=== PATIENT | male | born 1945 | race Caucasian/White ===

== ENCOUNTER 2019-01-03 14:49 | Emergency (ER) | payer OTHER ==
[~2019-01-03] VITALS: Ht 180.3 cm; Wt 72.6 kg
[~2019-01-03 14:49] MED LIST: AUGMENTIN 875875 MG; BAYER CHEWABLE81 MG PO; CARVEDILOL12.5 MG PO; CO Q-10100 MG; CRESTOR20 MG; FISH OIL 1,001000 M2; LOPRESSOR50 PO; MULTIVITAMINS1 EAC6; NEURONTIN 300300 M1; PLAVIX 75 MG TA75 M1; ZESTRIL20 MG PO
[2019-01-03] MEDS ORDERED: FLOMAX0.4 MG PO (15:06)
[2019-01-03] MEDS ORDERED: ZOLOFT50 MG PO (15:06)
[2019-01-03] MEDS ORDERED: NORCO 5-325 TA1 EAC1 PO (15:51)
[2019-01-03 16:06] VITALS: BP 133/68
== END 2019-01-03 16:06 | disposition home or self-care (01) ==
LOC: M.ERS 14:49
DX: S20.222A Contusion of left back wall of thorax, initial encounter (principal); I10 Essential (primary) hypertension; Z98.890 Other specified postprocedural states; Z90.11 Acquired absence of right breast and nipple; Z88.8 Allergy status to other drugs, medicaments and biological substances; W18.39XA Other fall on same level, initial encounter; Y92.000 Kitchen of unspecified non-institutional (private) residence as the place of occurrence of the external cause; Y93.89 Activity, other specified; Y99.8 Other external cause status

== ENCOUNTER 2019-09-01 15:37 | Emergency (ER) | payer OTHER ==
[~2019-09-01] VITALS: Ht 180.3 cm; Wt 69.8 kg
[~2019-09-01 15:37] MED LIST changes: -CRESTOR20 MG; +CRESTOR20 MG PO; +FLOMAX0.4 MG PO; +NORCO 5-325 TA1 EAC1 PO; -PLAVIX 75 MG TA75 M1; +PLAVIX 75 MG TA75 M1 PO; +SERTRALINE HCL50 MG PO
[2019-09-01] MEDS ORDERED: TOVIAZ8 MG PO (15:47)
[2019-09-01 16:54] LABS: URINE BILIRUBIN NEGATIVE (Negative); URINE BLOOD NEGATIVE (Negative); URINE CLARITY CLEAR; URINE COLOR YELLOW; URINE GLUCOSE-RANDOM NEGATIVE (Negative); URINE KETONES 1+ (Negative); URINE LEUKOCYTES-REFLEX NEGATIVE (Negative); URINE NITRITE-REFLEX NEGATIVE (Negative); URINE PROTEIN NEGATIVE (Negative); URINE SPECIFIC GRAVITY >= 1.030 (1.005-1.030); URINE UROBILINOGEN 0.2 E.U./dl (0.2-1.0)
[2019-09-01 17:13] LABS: CALCIUM 9.2 mg/dL (8.5-10.1); CREATININE 0.7 mg/dL (0.6-1.3); POTASSIUM 3.5 mmol/L (3.5-5.1)
[2019-09-01 17:20] LABS: HEMATOCRIT 43.2 % (42.0-52.0); HEMOGLOBIN 14.5 gm/dL (14.0-18.0); MCHC 33.6 g/dL (28.0-37.0); MCV 89.3 fL (80.0-100.0); MPV 9.5 fl. (7.2-11.1); NUCLEATED RBCS 0 /100WBC; PLATELET COUNT* 251 thou/uL (150-400); RBC 4.84 mil/uL (4.50-6.00); RDW-CV 15.1 % (10.5-14.5); WBC 14.4 thou/uL (4.0-11.0)
[2019-09-01 17:24] LABS: ALBUMIN 4.1 g/dL (3.4-5.0); TOTAL BILIRUBIN 0.8 mg/dL (<0.1-1.0); TOTAL PROTEIN 8.3 g/dL (6.4-8.2)
[2019-09-01 18:00] LABS: ABSOLUTE MONOCYTES 0.4 thou/uL (0.0-1.2); PLATELET ESTIMATE ADEQUATE
[2019-09-01 18:01] LABS: ANISOCYTOSIS Occasional
[2019-09-01 20:32] VITALS: BP 188/89
--- NOTE | 2019-09-02 10:57 | EKG ---
[place] [address] ELECTROCARDIOGRAM REPORT Name: JARRETT NGUYEN Room: [facility]#: [id number] Admission: 09/01/19 Attend Phys: Discharge: 09/01/19 Date of : 43 Date of Service: 09/01/19 1637 Report #: [id number] THIS REPORT FOR: //name// [facility] ED Test Date: 2019-09-01 Test Time: 16:37:32 Pat Name: JARRETT NGUYEN Department: Room: Gender: Senior Net C Developer: MS : 1945 Requested By: Lul Bajwa Order Number: [id number] MD: Michael Shields Measurements Intervals [place] Rate: 79 P: CT: QRS: 57 QRSD: 118 T: -74 QT: 422 QTc: 484 Interpretive Statements Sinus rhythm with premature atrial complexes Inferior infarct, age indeterminate Late transition, cannot rule out old anteroseptal infarct Baseline wander in lead(s) V3 Compared to ECG 12/13/2013 18:58:06 Sinus rhythm no longer present Ventricular premature complex(es) no longer present Myocardial infarct finding still present Electronically Signed On 09-02-2019 10:56:42 CDT by Michael Shields [email or web address] <ELECTRONICALLY SIGNED> By: Michael Shields MD, FACC 09/02/19 1056 1637 1637 Michael Shields MD, [facility] /EPI
== END 2019-09-01 20:48 | disposition short-term general hospital (02) ==
LOC: M.ERS 15:37
PROVIDERS: Physician Assistant
DX: S01.511A Laceration without foreign body of lip, initial encounter (principal); S02.601A Fracture of unspecified part of body of right mandible, initial encounter for closed fracture; I48.91 Unspecified atrial fibrillation; J18.1 Lobar pneumonia, unspecified organism; I10 Essential (primary) hypertension; Z88.8 Allergy status to other drugs, medicaments and biological substances; W18.39XA Other fall on same level, initial encounter; Y93.89 Activity, other specified; Y92.89 Other specified places as the place of occurrence of the external cause; Y99.8 Other external cause status

== ENCOUNTER 2019-09-25 18:38 | Inpatient (IN) | payer OTHER ==
[~2019-09-25] VITALS: Ht 180.3 cm; Wt 64.9 kg
[~2019-09-25 18:38] MED LIST changes: +TOVIAZ8 MG PO
[2019-09-25 18:40] VITALS: BP 158/80
[2019-09-25 19:47] LABS: BE 11.7 mmol/L (-2 to +3); pH 7.461 (7.340-7.450)
[2019-09-25 19:50] LABS: PCO2 53.8 mmHg (35.0-45.0); PO2 57.5 mmHg (75.0-100.0)
[2019-09-25 20:06] LABS: INFLUENZA A ANTIGEN Negative (Negative)
[2019-09-25 20:08] LABS: HEMATOCRIT 37.7 % (42.0-52.0); HEMOGLOBIN 12.5 gm/dL (14.0-18.0); MCH 29.8 pg (26.0-34.0); MCHC 33.1 g/dL (28.0-37.0); MPV 10.5 fl. (7.2-11.1); NUCLEATED RBCS 0 /100WBC; PLATELET COUNT* 178 thou/uL (150-400); RBC 4.18 mil/uL (4.50-6.00); RDW-CV 14.4 % (10.5-14.5); WBC 12.9 thou/uL (4.0-11.0)
[2019-09-25 20:34] LABS: CREATININE 0.9 mg/dL (0.6-1.3); POTASSIUM 4.6 mmol/L (3.5-5.1)
[2019-09-25 20:38] LABS: ALBUMIN 3.3 g/dL (3.4-5.0); MAGNESIUM 2.1 mg/dL (1.8-2.4); TOTAL BILIRUBIN 0.5 mg/dL (<0.1-1.0); TOTAL PROTEIN 7.6 g/dL (6.4-8.2)
[2019-09-25 20:58] LABS: ABSOLUTE LYMPHOCYTES 0.3 thou/uL (0.8-5.3); ABSOLUTE MONOCYTES 0.6 thou/uL (0.0-1.2)
[2019-09-25 20:59] LABS: PLATELET ESTIMATE ADEQUATE
[2019-09-25 22:10] VITALS: BP 94/50
[2019-09-25 23:00] VITALS: BP 102/55
[2019-09-25 23:48] VITALS: BP 102/55
[2019-09-26 04:00] VITALS: BP 170/87
[2019-09-26 06:00] VITALS: BP 143/47
[2019-09-26 08:00] VITALS: BP 149/76
[2019-09-26] MEDS ORDERED: NEURONTIN300 MG PO (08:03)
[2019-09-26] MEDS ORDERED: PERCOCET 5-3251 EACH PO (08:04)
[2019-09-26] MEDS ORDERED: TYLENOL325 M1 PO (08:05)
[2019-09-26 12:00] VITALS: BP 106/57
--- NOTE | 2019-09-26 12:14 | 2DMMODE ---
[place] [address] 2 D/M-MODE ECHOCARDIOGRAM Name: JARRETT NGUYEN Room: [address] IN .R.#: [id number] Admission: 09/25/19 Attend Phys: Colten Sadler, Discharge: Date of : 43 Date of Service: 09/26/19 1212 Report #: [id number] THIS REPORT FOR: cc: Quoc Melendez MD, Matthew W. MD Holkins, John M. MD [facility] ~ APPROVED REPORT Study performed: 09/26/2019 11:20:28 EXAM: Comprehensive 2D, Doppler, and color-flow Echocardiogram Patient Location: In-Patient Room #: [facility] Status: routine BSA: 1.86 HR: 76 bpm BP: 143/47 mmHg Rhythm: NSR Other Information Study Quality: Good Indications Elevated Troponin 2D Dimensions IVSd: 13.60 (7-11mm) LVOT Diam: 22.04 (18-24mm) LVDd: 51.73 mm PWd: 7.55 (7-11mm) Ascending Ao: 36.60 (22-36mm) LVDs: 45.17 (25-40mm) Aortic Root: 41.29 mm Volumes Left Atrial Volume (Systole) LA ESV Index: 37.90 mL/m2 Aortic Valve AoV Peak Demetrius.: 0.92 m/s AO Peak Gr.: 3.36 mmHg LVOT Max P.72 mmHg AO Mean Gr.: 2.10 mmHg LVOT Mean P.29 mmHg LVOT Max V: 0.83 m/s AO V2 VTI: 19.60 cm LVOT Mean V: 0.52 m/s JAYSHREE (VTI): 3.06 cm2 LVOT V1 VTI: 15.72 [place] [address] 2 D/M-MODE ECHOCARDIOGRAM Name: JARRETT NGUYEN Room: [address] IN .R.#: [id number] Admission: 09/25/19 Attend Phys: Colten Sadler, Discharge: Date of : 43 Date of Service: 09/26/19 1212 Report #: [id number] Mitral Valve E/A Ratio: 0.54 MV Decel. Time: 285.91 ms MV E Max Demetrius.: 0.44 m/s MV PHT: 82.91 ms MVA (PHT): 2.65 cm2 TDI E/Lateral E': 6.29 E/Medial E': 5.50 Medial E' Demetrius.: 0.08 m/s Lateral E' Demetrius.: 0.07 m/s Pulmonary Valve PV Peak Demetrius.: 0.79 m/s PV Peak Gr.: 2.51 mmHg Left Ventricle The left ventricle is normal size. There is moderate diffuse hypokinesis of left ventriular wall motion. There is normal left ventricular wall thickness. Left ventricular systolic function is moderately decreased. LVEF is 35%. Grade I - abnormal relaxation pattern. Right Ventricle The right ventricle is normal size. The right ventricular systolic function is normal. Atria Left atrium is mildly dilated. The right atrium size is normal. Aortic Valve Mild aortic valve sclerosis. Mild aortic regurgitation. There is no aortic valvular stenosis. Mitral Valve The mitral valve is normal in structure. There is no mitral valve regurgitation noted. No evidence of mitral valve stenosis. Tricuspid Valve The tricuspid valve is normal in structure. Unable to assess PA pressure. Trace tricuspid regurgitation. Pulmonic Valve The pulmonary valve is normal in structure. There is no pulmonic [place] [address] 2 D/M-MODE ECHOCARDIOGRAM Name: JARRETT NGUYEN Room: [address] IN [facility]#: [id number] Admission: 09/25/19 Attend Phys: Colten Sadler, Discharge: Date of : 43 Date of Service: 09/26/19 1212 Report #: [id number] Great Vessels The aortic root is normal in size. IVC is normal in size and collapses >50% with inspiration. Pericardium There is no pericardial effusion. <Conclusion> The left ventricle is normal size. There is normal left ventricular wall thickness. Left ventricular systolic function is moderately decreased. LVEF is 35%. Grade I - abnormal relaxation pattern. The right ventricle is normal size. Left atrium is mildly dilated. The right atrium size is normal. Mild aortic valve sclerosis. Mild aortic regurgitation. There is no aortic valvular stenosis. The mitral valve is normal in structure. The tricuspid valve is normal in structure. IVC is normal in size and collapses >50% with inspiration. There is no pericardial effusion. There is moderate diffuse hypokinesis of left ventriular wall motion. <ELECTRONICALLY SIGNED> By: Al Mcgowan MD, FACC 09/26/19 121 121 121 Al Mcgowan MD, FACC /INF
--- NOTE | 2019-09-26 15:19 | NUR ---
ASSUMED PT CARE REPORT RECEIVED FROM NURSE PT IS ALERT AWAKE ORIENTED X4 . PT DENIES PAIN AT 0800. PT ON 15 L NONREBREATHER. O2 SAT 100%. VSS. SEE CHART. PT ASSITED OUT OF BED TO RECLINER. PT PEG TUBE ASSESSED. PEG TUBE IS PATENT. THIS NURSE SPOKE WITH PT WHO UPDATED THE NURSE ABOUT THE PATIENT'S MEDICATION AND ABOUT THE PATIENT FEEDING TUBE NUTRITION. STATED THAT PT GETS ISOCOURCE 1.5 STACEY AT HOME. THIS WAS COMMUNICATED TO DOCTOR AND HOUSE SUP . HOUSE SUP PROVIDED THE JEVITY 1.5 STACEY [facility] IS CONSIDERED A REPLACEMENT/SUBSTITUTE FOR ISOSOURCE 1.5L. THIS NURSE FEDD THE PATIENT AT 0900 , 230 ML OF JEVITY 1.5 STACEY. AT AROUND 1100 PT COMPLAINT OF NAUSEA. ZOFRAN WAS GIVEN. CARDIO, ID, PULMONARY CONSULTED. ECHO WAS COMPLETED IN PATIENT'S ROOM. PULMONOLOGY SUGGESTED THAT PT BE TITRATED ON OXYGEN. THIS NURSE TITRATED PT DOWN TO 10 L NONREBREATHER. PT O2 SATURATION REMAINED AT 100% ON 10 L NONREBREATHER. PT GOT A BATH AND IS CURRENTLY BACK IN BED. PT WAS FED AGAIN AT 1500, 230 CC OF JEVITY 1.5 L GIVEN. PT DENIES N/V AT TIME OF FEEDING. PATIENT PEG TUBE WAS FLUSHED WITH 30 CC OF WATER BEFORE AND AFTER EACH FEEDING. MEDICATION WERE ADMINISTERED THIS AM VIA PEG TUBE. PT TOLORATED WELL. NO MORE NAUSEA/VOMITING. WILL CONTINUE TO MONITOR PATIENT. CALL LIGHT AT REACH. ENHANCED ISOLATION IN PLACE.
--- NOTE | 2019-09-26 15:30 | NUR ---
NO FEVER NOTED THIS SHIFT. TAMIFLU GIVEN IN AM VIA PEG TUBE
[2019-09-26 15:45] VITALS: BP 106/54
--- NOTE | 2019-09-26 16:06 | NUR ---
IV ANTIBIOTIC GIVEN ORDERED. LOSARTAN GIVEN ORDERED. MRSA SWABBED. PT IS INCONTINENT. UNABLE TO OBTAIN URINE SAMPLE TO SEND TO LAB.
--- NOTE | 2019-09-26 16:58 | NUR ---
CM ASSESSMENT: CM SPOKE TO THE PT TO DISUCSS HIS HOME SITUAION, MOBILITY AND COGNITION PRIOR TO ADMISSION, AND TO INFORM OF THE ROLE OF CM. PT INFORMS THAT PRIOR TO ADMISSION HE WAS A&O, INDEPENDENT WITH ADL'S, AND USED A WALKER FOR MOBILITY. PT HAS NO OTHER DME. PT RESIDES AT HOME WITH SPOUSE AND SHE IS SUPPORTIVE AND INVILVED IN THE PT'S POC. PT HAS PAST HX OF HH, BUT COULD NOT REMEMBER THE NAME. PT HAS NO HX OF SNF. PT PLANS TO RETURN HOME AT D/C. CM WILL REMAIN AVAILABLE TO ASSIST AND FOLLOW NEEDED.
[2019-09-26 18:12] LABS: URINE BILIRUBIN NEGATIVE (Negative); URINE BLOOD NEGATIVE (Negative); URINE CLARITY CLEAR; URINE COLOR YELLOW; URINE GLUCOSE-RANDOM NEGATIVE (Negative); URINE KETONES NEGATIVE (Negative); URINE LEUKOCYTES-REFLEX NEGATIVE (Negative); URINE NITRITE-REFLEX NEGATIVE (Negative); URINE PROTEIN NEGATIVE (Negative); URINE SPECIFIC GRAVITY 1.015 (1.005-1.030); URINE UROBILINOGEN 0.2 E.U./dl (0.2-1.0)
--- NOTE | 2019-09-26 18:40 | NUR ---
urine collected and sent to lab. pt in bed. call light within reach. iv abx finished.
--- NOTE | 2019-09-26 18:40 | NUR ---
remained on non rebreather 10 l
[2019-09-26 20:23] VITALS: BP 119/55
[2019-09-27] VITALS (8 sets, daily range): BP systolic 100–181; BP diastolic 50–101
--- NOTE | 2019-09-27 05:09 | NUR ---
HAD 2 60 ML OF JEVITY 1.5 DURING SHIFT, FLUSHES WELL. HAD A MILD FEVER 0430 GAVE TYLENOL VIA PEG TUBE. HE IS ABLE TO USE THE URINAL AND MOVE HIMSELF WELL IN THE BED. RECEIVED ALL MEDS SCHEDULED. STILL ON 10L OF O2. TITRATING AND WEANING ATTEMPTED AND O2 WENT BELOW 90. ON 10L HE WAS COMFORTABLE THROUGH THE SHIFT. LUNG SOUNDS DIMINISHED. KEPT ON NON REBREATHER WHILE ASLEEP. WILL MONITOR LABS AND CONTINUE PLAN OF CARE.
[2019-09-27 05:51] LABS: ABSOLUTE LYMPHOCYTES 0.4 thou/uL (0.8-5.3); ABSOLUTE MONOCYTES 0.6 thou/uL (0.0-1.2); BASOPHILS 0.3 %; EOSINOPHILS 0.1 %; HEMATOCRIT 31.9 % (42.0-52.0); HEMOGLOBIN 10.7 gm/dL (14.0-18.0); MCH 29.6 pg (26.0-34.0); MCHC 33.6 g/dL (28.0-37.0); MCV 88.1 fL (80.0-100.0); MONOCYTES 4.9 %; MPV 11.5 fl. (7.2-11.1); NUCLEATED RBCS 0 /100WBC; PLATELET COUNT* 132 thou/uL (150-400); POLYS 91.7 %; RBC 3.62 mil/uL (4.50-6.00); RDW-CV 14.6 % (10.5-14.5); WBC 13.1 thou/uL (4.0-11.0)
[2019-09-27 06:04] LABS: CALCIUM 8.2 mg/dL (8.5-10.1); CREATININE 0.7 mg/dL (0.6-1.3); POTASSIUM 3.6 mmol/L (3.5-5.1)
[2019-09-27 09:36] LABS: BE 6.4 mmol/L (-2 to +3); PCO2 44.1 mmHg (35.0-45.0); pH 7.464 (7.340-7.450)
[2019-09-27 09:38] LABS: PO2 183.2 mmHg (75.0-100.0)
--- NOTE | 2019-09-27 18:58 | NUR ---
ASSUMED PT CARE AT 0730, FULL ASSESMENT DONE CHARTED. PT A/O X4, DENIES PAIN. ON 10 VENTI MASK THIS AM, WAS ABLE TO CHANGE TO 6L HIGH FLOW NC, DID TITRATE TO 5L HIGH FLOW THIS AFTERNOON WITH SAT APPROX 94-96%. TUBE FEEDING DONE AT 1030/1430. 50 CC WATER BEFORE AND AFTER, GAVE APPROX 16OZ FEEDING EACH TIME. RESIDUAL OF APPROX 20CC. PATIENT WANTED TO GET UP AND WALK TO THE BR THIS AFTERNOON, HIS LEGS GAVE OUT RESULTING IN ASSISTED FALL TO THE FLOOR AT APPROX 1715. VSS AT THIS TIME. FALL PRECAUTIONS REMAIN IN PLACE. BED ALARM ON. PATIENT USES CALL LIGHT APPROPRIALTY. UPDATED ON PLAN OF CARE.
[2019-09-28] VITALS: BP 117/63
[2019-09-28 05:35] LABS: ABSOLUTE LYMPHOCYTES 0.5 thou/uL (0.8-5.3); ABSOLUTE MONOCYTES 0.6 thou/uL (0.0-1.2); ABSOLUTE NEUTROPHILS 10.3 thou/uL (1.6-8.1); BASOPHILS 0.1 %; EOSINOPHILS 0.2 %; HEMATOCRIT 30.7 % (42.0-52.0); HEMOGLOBIN 10.5 gm/dL (14.0-18.0); LYMPHOCYTES 4.3 %; MCH 30.1 pg (26.0-34.0); MCHC 34.2 g/dL (28.0-37.0); MCV 87.8 fL (80.0-100.0); MONOCYTES 5.2 %; MPV 11.2 fl. (7.2-11.1); NUCLEATED RBCS 0 /100WBC; PLATELET COUNT* 135 thou/uL (150-400); POLYS 90.2 %; RDW-CV 14.4 % (10.5-14.5); WBC 11.4 thou/uL (4.0-11.0)
[2019-09-28 05:43] LABS: ALBUMIN 2.3 g/dL (3.4-5.0); CALCIUM 7.8 mg/dL (8.5-10.1); CREATININE 0.6 mg/dL (0.6-1.3); POTASSIUM 3.2 mmol/L (3.5-5.1); TOTAL BILIRUBIN 0.4 mg/dL (<0.1-1.0); TOTAL PROTEIN 6.1 g/dL (6.4-8.2)
--- NOTE | 2019-09-28 08:15 | NUR ---
PATIENT HAS RESTED WELL THROUGHOUT MOST OF THE NIGHT. VSS ON 5L 02 VIA HIGH FLOW CANNULA. PATIENT UP WITH ASSIST X 1 TO THE BSC. PATIENT REMAINS ON ISOLATION PRECAUTIONS D/T POSITIVE FLU B AND PENDING COVID-19. PEG TUBE IN PLACE AND MEDICATION AND TUBE FEEDINGS GIVEN ALONG WITH WATER FLUSHES. IV IN RIGHT FOREARM-SL. PATIENT INSTRUCTED TO USE CALL LIGHT WHEN NEEDING ASSISTANCE. HOURLY ROUNDS MADE. WILL CONTINUE WITH PLAN OF CARE AND NURSING TO MONITOR.
[2019-09-28 09:00] VITALS: BP 128/85
--- NOTE | 2019-09-28 16:25 | NUR ---
PATIENT ALERT AND ORIENTED X 4. VITAL SIGNS STABLE ON 5L O2 VIA HIGH FLOW CANULA. AFEBRILE. VOIDING PER URINAL. IV PATENT AND SALINE LOCKED. DENIES PAIN AND NAUSEA AT THIS TIME. JEVITY 1.5 TUBE FEEDINGS GIVE PER ORDERS. COVID-19 RESULTS ARE NEGATIVE. DROPLET ISOLATION MAINTAINED FOR INFLUENZA B. FALL PRECAUTIONS IN PLACE AND BED/CHAIR ALARM ON. CALL LIGHT WITHIN REACH. NURSING WILL CONTINUE TO MONITOR.
[2019-09-28 20:00] VITALS: BP 152/78
[2019-09-29 00:39] VITALS: BP 159/82
[2019-09-29 05:00] VITALS: BP 125/69
--- NOTE | 2019-09-29 05:59 | NUR ---
ASSUMED PATIENT CARE AT 1900. ASSESSMENT COMPLETED CHARTED. PATIENT IS NSR ON THE MONITOR. PATIENT REFUSED NIGHT-TIME BOLUS FEEDINGS. HOURLY ROUNDING IN PLACE FOR PATIENT SAFETY. CLWR.
--- NOTE | 2019-09-29 06:32 | CON ---
[address] [address] CONSULTATION Name: JARRETT NGUYEN Room: [address] IN M.R.#: [id number] Admission: 09/25/19 Attend Phys: Colten Sadler MD Discharge: Date of : 43 Report #: [id number] THIS REPORT FOR: //name// cc: Quoc Melendez MD, Matthew W. MD ~ THIS REPORT FOR: //name// CC: Colten Melendez DATE OF SERVICE: 09/26/2019 INFECTIOUS DISEASE CONSULTATION ATTENDING PHYSICIAN: Oleg Cowart MD. REASON FOR EVALUATION: Influenza B ____ COVID presented with nausea, vomiting and an episode of diarrhea. HISTORY OF PRESENT ILLNESS: Chart reviewed, patient examined. This is a 74-year-old gentleman with extensive medical history, I believe, has had some recent requirement for a PEG tube. He has got dysphagia. He has got some facial disfigurement apparently due to a mandibular fracture, result of a fall. He did undergo placement of the PEG tube on 09/17/2019. He noted over the course of the day prior to his presenting to the Emergency Room, had nausea, emesis, progressive weakness, did have some cough, some low-grade temperature elevations and at least one episode of diarrhea. He was concerned about pneumonitis. On evaluation, they confirmed he had positive influenza B antigen. He was hypoxemic on 4 liters with pO2 of 57, elevated troponin. Chest x-ray with some possible retrocardiac pneumonic infiltrate. Lactic acid was elevated at 3.6. Blood cultures collected and sterile thus far. He is being ruled out for COVID. He is maintained on supplemental oxygen per Ventimask. At this point, he states he feels relatively comfortable, has a minor discomfort associated with his PEG site. He is no longer nauseated, was febrile overnight. ALLERGIES: CEPHALEXIN AND MEPERIDINE. CURRENT MEDICATIONS: Include pantoprazole, enoxaparin, tamsulosin, sertraline, clopidogrel, aspirin, hydralazine, docusate sodium, Tamiflu. He was given a dose of levofloxacin as well. 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 SOCIAL HISTORY: Nonsmoker, no ethanol, [place] [address] CONSULTATION Name: JARRETT NGUYEN Room: [address]#: [id number] Admission: 09/25/19 Attend Phys: Colten Sadler MD Discharge: Date of : 43 Report #: [id number] FAMILY HISTORY: Noncontributory. REVIEW OF SYSTEMS: Otherwise, unremarkable 10-point review of systems. PHYSICAL EXAMINATION: GENERAL: He is pleasant, cooperative, appears chronically ill, undernourished. His face is disfigured on the right. NECK: Supple. VITAL SIGNS: Temperature 97.8, T-max overnight of 101.3; pulse 71; respirations 18; blood pressure is 149/76. SKIN: Warm, dry. HEENT: As noted above. LUNGS: Few scattered coarse breath sounds. HEART: Regular. I do not appreciate a murmur. ABDOMEN: Soft, nontender, nondistended. EXTREMITIES: No cyanosis. GENITOURINARY: Deferred. RECTAL: Deferred. LABORATORY DATA: Echo: Ventricular systolic function is moderately decreased, EF of 35%, moderate diffuse hypokinesis of left ventricular wall. Cultures sterile thus far. Troponin elevated at 0.86. Lactic acid now 1.6, down from 3.6. CBC: White count of 12.9, H and H 12.5 and 37.7, platelets of 178 and a lymphocyte count of 300. Electrolytes: Sodium 136, potassium 4.6, chloride 97, bicarbonate is 37, anion gap of 2, BUN and creatinine 25 and 0.9, glucose of 148. AST of 24, ALT of 15. Influenza positive for B antigen. ASSESSMENT AND PLAN: Pneumonitis in the setting of recent PEG placement, certainly at risk for aspiration. I think it is reasonable to continue empiric therapy at this point in addition to the oseltamivir. Given the mildly elevated white count, certainly at risk for early complications. He was clearly hypoxemic when he presented. We will await COVID results. At this point, it seems less likely to me that he will have that given his other situations. <ELECTRONICALLY SIGNED> By: Sharif Valdovinos MD 09/29/19 0632 1226 [id number] Valdovinos MD /nt
[2019-09-29 08:30] VITALS: BP 115/73
--- NOTE | 2019-09-29 10:51 | NUR ---
Lazaro spoke with , anticipate dc either later today or tomorrow.
[2019-09-29 11:57] VITALS: BP 138/75
[2019-09-29 18:00] VITALS: BP 78/44
--- NOTE | 2019-09-29 18:46 | NUR ---
ASSUMED CARE OF PT APPROX 0730. REASSESSMENT COMPLETED CHARTED. MEDICATIONS GIVEN CHARTED. PT UP AT BEDSIDE WITH ASSISTANCE TO USE URINAL. PT WORKED WITH THERAPY AND WAS UP TO BEDSIDE CHAIR. SAFTEY PRECAUTIONS UTILIZED, HOURLY ROUNDED, CALL LIGHT WITHIN REACH.
[2019-09-29 20:00] VITALS: BP 149/83
[2019-09-30] VITALS: BP 92/51
[2019-09-30 04:53] LABS: ABSOLUTE EOSINOPHILS 0.1 thou/uL (0.0-0.7); ABSOLUTE LYMPHOCYTES 0.5 thou/uL (0.8-5.3); EOSINOPHILS 1.5 %; POLYS 76.6 %
[2019-09-30 04:55] LABS: ABSOLUTE MONOCYTES 0.7 thou/uL (0.0-1.2); ABSOLUTE NEUTROPHILS 3.9 thou/uL (1.6-8.1); BASOPHILS 0.5 %; HEMATOCRIT 32.6 % (42.0-52.0); HEMOGLOBIN 11.2 gm/dL (14.0-18.0); LYMPHOCYTES 8.7 %; MCHC 34.4 g/dL (28.0-37.0); MCV 87.3 fL (80.0-100.0); MONOCYTES 12.7 %; NUCLEATED RBCS 0 /100WBC; PLATELET COUNT* 144 thou/uL (150-400); RBC 3.73 mil/uL (4.50-6.00); RDW-CV 14.2 % (10.5-14.5); WBC 5.2 thou/uL (4.0-11.0)
[2019-09-30 05:25] LABS: CALCIUM 7.7 mg/dL (8.5-10.1); CREATININE 0.6 mg/dL (0.6-1.3); POTASSIUM 3.4 mmol/L (3.5-5.1)
--- NOTE | 2019-09-30 07:44 | NUR ---
Shift uneventful. Pt is aox4, running SR w/ PACs and PVCs, respirations are even and unlabored on 3L NC. Pt is medically stable at this time.
[2019-09-30 08:00] VITALS: BP 111/68
[2019-09-30 12:00] VITALS: BP 90/49
--- NOTE | 2019-09-30 13:14 | NUR ---
PT RESTING WITH NO C/O PAIN. TOLERATED TUBE FEEDING. VSS ON 2L NC. PT TO D/C WITH 2L NC. SR WITH PVCS. PT DID STUMBLE WHEN RT PERFORMED EX OX AND RT REQUESTED HELP RIGHT OUTSIDE PT DOOR. PHYSICIAN MADE AWARE. FALL PRECAUTIONS IN PLACE.CLWR
--- NOTE | 2019-09-30 13:57 | NUR ---
Pt too weak to dc to home today, acute rehab consult placed. OT ordered. Pt has qualifying dx of acute rehab pending insurance auth. Updated Pt. Following.
[2019-09-30 16:50] VITALS: BP 114/71
[2019-09-30 20:00] VITALS: BP 123/84
[2019-10-01] VITALS: BP 124/66
[2019-10-01 04:00] VITALS: BP 154/85
--- NOTE | 2019-10-01 06:36 | NUR ---
Shift uneventful. Pt aox4, running SR w/ PVCs on telemetry, respirations are even and unlabored on 3L NC. Lung sounds are clear on auscultation and SO2 has been between 94-96%. Pt strength is noticably better and pt is not as easily fatigued. Pt medically stable at this time.
[2019-10-01 09:48] VITALS: BP 158/83
[2019-10-01 12:00] VITALS: BP 120/42
[2019-10-01 13:16] VITALS: BP 120/42
--- NOTE | 2019-10-01 13:17 | NUR ---
Pt too high level for acute rehab, will dc to home today. CM updated Pt's , declined HH, CM provided contact info in case Pt/ change their mind regarding HH. CM faxed oxygen referral to Tyesha at [facility], awaiting confirmation that Pt qualifies, Tyesha to deliver a tank for dc.
[2019-10-01] MEDS ORDERED: LEVAQUIN 750 M750 MG PO (14:39)
[2019-10-01 14:46] VITALS: BP 120/42
--- NOTE | 2019-10-01 15:39 | NUR ---
pT BEING DISCHARGED TO HOME SELF CARE. FAMILY AND PATIENT REFUSED [facility]. PT IS STABLE. HOME O2 @ 3 LITERS. PT LEAVING WITH OWN O2 TANK. PT HAS ALL PRESCRIPTIONS. ALL DISCHARGE PAPERWORK COMPLETED, REVIEWED, AND COPIES SENT WITH THE. THE PT HAS ALL HIS BELONGINGS. PT PEG TUBE SECURED AND FUNCTIONAL. CARE REVIEWED WITH THE PT. IV REMOVED FROM RT FA. TRANSPORTED TO PERSONAL VEHICLE VIA W/C. ACCOMPANIED BY STAFF.
--- NOTE | 2019-10-03 12:20 | EKG ---
[place] [address] ELECTROCARDIOGRAM REPORT Name: JARRETT NGUYEN Room: [address] IN .R.#: [id number] Admission: 09/25/19 Attend Phys: Colten Sadler, Discharge: 10/01/19 Date of : 43 Date of Service: 09/25/19 2030 Report #: [id number] THIS REPORT FOR: //name// [facility] ED Test Date: 2019-09-25 Test Time: 20:30:52 Pat Name: JARRETT NGUYEN Department: Room: [facility] Gender: M Burn Crew Member: : 1945 Requested By: Sonia Solano Order Number: [id number] MD: Al Mcgowan Measurements Intervals [place] Rate: 95 P: 44 [place]: 157 QRS: 60 QRSD: 115 T: -70 QT: 365 QTc: 459 Interpretive Statements Sinus rhythm Probable left atrial enlargement Nonspecific intraventricular conduction delay Inferior infarct, age indeterminate Compared to ECG 09/01/2019 16:37:32 Intraventricular conduction delay now present Atrial premature complex(es) no longer present Myocardial infarct finding still present Electronically Signed On 09-26-2019 11:04:40 CDT by Al Mcgowan [email or web address] <ELECTRONICALLY SIGNED> By: Al Mcgowan MD, [facility] 09/26/19 1104 2030 2030 Al Mcgowan MD, [facility] /EPI
--- NOTE | 2019-10-03 12:20 | EKG ---
[place] [address] ELECTROCARDIOGRAM REPORT Name: JARRETT NGUYEN Room: [address] IN .R.#: [id number] Admission: 09/25/19 Attend Phys: Colten Sadler, Discharge: 10/01/19 Date of : 43 Date of Service: 09/26/19 0619 Report #: [id number] THIS REPORT FOR: //name// [facility] ED Test Date: 2019-09-26 Test Time: 06:19:12 Pat Name: JARRETT PATRICK Department: Room: [address] Gender: M County Director Welfare: THOWARD3 : 1945 Requested By: Colten Sadler Order Number: [id number] Jo Ann MD: Al Mcgowan Measurements Intervals [place] Rate: 69 P: 54 MT: 175 QRS: 37 QRSD: 122 T: -55 QT: 493 QTc: 529 Interpretive Statements Sinus rhythm minor IVCD possible inferior and anteroseptal scars Compared to ECG 09/01/2019 16:37:32 Minor INTRAVENTRICULAR CONDUCTION DELAY is noted Atrial premature complex(es) no longer present Electronically Signed On 09-26-2019 11:09:09 CDT by Al Mcgowan [email or web address] <ELECTRONICALLY SIGNED> By: Al Mcgowan MD, [facility] 09/26/19 1109 0619 0619 Al Mcgowan MD, [facility] /EPI
== END 2019-10-01 15:30 | disposition home or self-care (01) | DRG 177 ==
LOC: M.ERS 18:38 → M.ORTHSURG 20:52 → M.TBA-ER 20:52 → M.ORTHSURG 23:12 → M.2W 09-28 19:02
PROVIDERS: Internal Medicine; Internal Medicine Pulmonary Disease; Personal Emergency Response Attendant; ADMIT Internal Medicine
DX: J69.0 Pneumonitis due to inhalation of food and vomit (principal); J96.01 Acute respiratory failure with hypoxia; E43 Unspecified severe protein-calorie malnutrition; R65.10 Systemic inflammatory response syndrome (SIRS) of non-infectious origin without acute organ dysfunction; E87.3 Alkalosis; I50.22 Chronic systolic (congestive) heart failure; I43 Cardiomyopathy in diseases classified elsewhere; I48.91 Unspecified atrial fibrillation; E87.6 Hypokalemia; I11.0 Hypertensive heart disease with heart failure; J44.9 Chronic obstructive pulmonary disease, unspecified; J10.08 Influenza due to other identified influenza virus with other specified pneumonia; Z66 Do not resuscitate; Z85.118 Personal history of other malignant neoplasm of bronchus and lung; Z79.01 Long term (current) use of anticoagulants; Z79.899 Other long term (current) drug therapy; Z79.82 Long term (current) use of aspirin; Z88.8 Allergy status to other drugs, medicaments and biological substances; Z87.891 Personal history of nicotine dependence; Z92.3 Personal history of irradiation; Z68.20 Body mass index [BMI] 20.0-20.9, adult; Z03.818 Encounter for observation for suspected exposure to other biological agents ruled out

== ENCOUNTER → 2020-04-06 | Outpatient (CLI) | payer OTHER ==
[~2020-04-06] MED LIST changes: +LEVAQUIN 750 M750 MG PO; +NEURONTIN300 MG PO; +PERCOCET 5-3251 EACH PO; +TYLENOL325 M1 PO
== END ==
LOC: M.ST 05:13
PROVIDERS: ATTEND Family Medicine
DX: R47.1 Dysarthria and anarthria (principal); R13.10 Dysphagia, unspecified

== ENCOUNTER → 2020-05-13 | Outpatient (CLI) | payer OTHER | LOC: M.RAD 11:00 | PROVIDERS: ATTEND Family Medicine | DX: R13.10 Dysphagia, unspecified (principal) ==